=== PATIENT | female | born 1970 | race Hispanic/Latino ===

== ENCOUNTER 2019-07-20 06:00 | Day surgery (SDC) | payer OTHER ==
[~2019-07-20] VITALS: Ht 157.5 cm; Wt 61.2 kg
[~2019-07-20 06:00] MED LIST: SODIUM CHLORIDE 0.9% 1000ML 1,000 ML IV ONE
[2019-07-20 06:30] VITALS: BP 119/87
[2019-07-20] MEDS ORDERED: LIDOCAINE PF 2% 5ML ABBOJECT ONE (06:37)
[2019-07-20] MEDS ORDERED: PROPOFOL 10 MG/ML 20ML VIAL IV ONE (06:39)
[2019-07-20 09:41] VITALS: BP 108/67
[2019-07-20 09:46] VITALS: BP 112/77
[2019-07-20 09:51] VITALS: BP 118/83
[2019-07-20 09:57] VITALS: BP 128/75
== END 2019-07-20 10:01 | disposition home or self-care (01) ==
LOC: ENDO 06:00 → DAH 06:00 → ENDO 10:01
PROVIDERS: ATTEND Internal Medicine
DX: K59.04 Chronic idiopathic constipation (principal); K57.30 Diverticulosis of large intestine without perforation or abscess without bleeding; K64.0 First degree hemorrhoids; K62.89 Other specified diseases of anus and rectum; R19.7 Diarrhea, unspecified; Z79.899 Other long term (current) drug therapy; Z90.710 Acquired absence of both cervix and uterus; Z98.51 Tubal ligation status; Z98.890 Other specified postprocedural states; Z88.8 Allergy status to other drugs, medicaments and biological substances; Z82.49 Family history of ischemic heart disease and other diseases of the circulatory system; Z83.3 Family history of diabetes mellitus; Z82.5 Family history of asthma and other chronic lower respiratory diseases
CPT/HCPCS: 45380; A4606; J2001; J2704; J7030

== ENCOUNTER → 2022-12-06 | Outpatient (CLI) | payer OTHER ==
[~2022-12-06] MED LIST changes: +IOHEXOL 350 MG/ML 100ML INFUS..BTL IV ONE; -SODIUM CHLORIDE 0.9% 1000ML 1,000 ML IV ONE
== END | disposition home or self-care (01) ==
LOC: RAH 09:28
PROVIDERS: ATTEND Urology
DX: K57.30 Diverticulosis of large intestine without perforation or abscess without bleeding (principal); R31.21 Asymptomatic microscopic hematuria
CPT/HCPCS: 74178; Q9967

== ENCOUNTER 2024-10-17 05:36 | Day surgery (SDC) | payer OTHER ==
[2024-10-17] VITALS (9 sets, daily range): BP systolic 106–126; BP diastolic 64–77; PULSE 55–70; RESP 16–18; TEMP 97.4–97.9
[~2024-10-17] VITALS: Ht 156.2 cm; Wt 62.6 kg
[~2024-10-17 05:36] MED LIST changes: -IOHEXOL 350 MG/ML 100ML INFUS..BTL IV ONE; +LEVO25CA4 PO; +OMEP40CA21 PO
[2024-10-17] MEDS: 0.9%NACL 1000ML 1,000 ML IV ONE (06:45)
[2024-10-17] MEDS ORDERED: proPOFol 10 MG/ML 20ML VIAL IV ONE (07:15)
[2024-10-17] MEDS ORDERED: LIDOCAINE HCL 1% 20 ML VIAL ONE (07:15)
== END 2024-10-17 08:38 | disposition home or self-care (01) ==
LOC: ENDO 05:36 → DAH 05:36 → ENDO 08:38
PROVIDERS: ATTEND Internal Medicine Gastroenterology
DX: K21.9 Gastro-esophageal reflux disease without esophagitis (principal); K29.50 Unspecified chronic gastritis without bleeding; K31.89 Other diseases of stomach and duodenum; K76.0 Fatty (change of) liver, not elsewhere classified; K59.04 Chronic idiopathic constipation; Z88.8 Allergy status to other drugs, medicaments and biological substances; Z98.51 Tubal ligation status; Z79.899 Other long term (current) drug therapy; Z98.890 Other specified postprocedural states
CPT/HCPCS: 43239; J7030 ×2; J2704; A4620; A4215; A4223; A7002; A4222; A4221; A4663; A4606; J3490